=== PATIENT | female | born 1945 | race Caucasian/White ===

== ENCOUNTER → 2017-10-02 | Outpatient (REF) | payer OTHER ==
[2017-10-02 17:51] LABS: ERYTHROCYTE SEDIMENTATION RATE 13 mm/hr (0-30)
[2017-10-02 17:58] LABS: ALBUMIN 3.9 GM/DL (3.2-5.2); ALBUMIN/GLOBULIN RATIO 1.15 (1.00-1.93); ALKALINE PHOSPHATASE 80 U/L (45-117); ALT/SGPT 29 U/L (12-78); ANION GAP 8 MEQ/L (8-16); AST/SGOT 20 U/L (7-37); BILIRUBIN,TOTAL 0.6 MG/DL (0.2-1.0); BLOOD UREA NITROGEN 13 MG/DL (7-18); CALCIUM LEVEL 9.5 MG/DL (8.8-10.2); CARBON DIOXIDE LEVEL 28 MEQ/L (21-32); CHLORIDE LEVEL 105 MEQ/L (98-107); CHOLESTEROL LEVEL 213 MG/DL (<200); CHOLESTEROL RISK RATIO 2.878 (<5); CREATININE FOR GFR 0.81 MG/DL (0.55-1.30); GLOMERULAR FILTRATION RATE > 60.0 (>39); GLUCOSE, FASTING 102 MG/DL (70-100); HDL CHOLESTEROL 74 MG/DL (>40); NON-HDL-C 139 MG/DL; POTASSIUM SERUM 4.2 MEQ/L (3.5-5.1); SODIUM LEVEL 141 MEQ/L (136-145); TOTAL PROTEIN 7.3 GM/DL (6.4-8.2); TRIGLYCERIDES LEVEL 115 MG/DL (<150)
[2017-10-02 18:05] LABS: TOTAL 25(OH) VITAMIN D 38.8 NG/ML (30.0-100.0)
== END ==
LOC: M SFHCCLAY 10:34
DX: E78.00 Pure hypercholesterolemia, unspecified (principal); I10 Essential (primary) hypertension; M35.3 Polymyalgia rheumatica; E55.9 Vitamin D deficiency, unspecified; Z68.41 Body mass index [BMI] 40.0-44.9, adult; Z79.899 Other long term (current) drug therapy
CPT/HCPCS: 80053

== ENCOUNTER → 2018-12-19 | Outpatient (REF) | payer OTHER ==
[2018-12-19 17:02] LABS: ALBUMIN 3.7 GM/DL (3.2-5.2); ALT/SGPT 24 U/L (12-78); BILIRUBIN,TOTAL 0.5 MG/DL (0.2-1.0); BLOOD UREA NITROGEN 15 MG/DL (7-18); CALCIUM LEVEL 9.3 MG/DL (8.8-10.2); CARBON DIOXIDE LEVEL 33 MEQ/L (21-32); CHLORIDE LEVEL 103 MEQ/L (98-107); CHOLESTEROL LEVEL 208 MG/DL (<200); CHOLESTEROL RISK RATIO 3.058 (<5); GLOMERULAR FILTRATION RATE > 60.0 (>39); GLUCOSE, FASTING 98 MG/DL (70-100); HDL CHOLESTEROL 68 MG/DL (>40); LDL CHOLESTEROL 112 MG/DL (<100); NON-HDL-C 140 MG/DL; POTASSIUM SERUM 4.2 MEQ/L (3.5-5.1); SODIUM LEVEL 140 MEQ/L (136-145); TOTAL PROTEIN 6.8 GM/DL (6.4-8.2); TRIGLYCERIDES LEVEL 139 MG/DL (<150)
[2018-12-19 17:10] LABS: TOTAL 25(OH) VITAMIN D 40.2 NG/ML (30.0-100.0)
== END ==
LOC: M SFHCCLAY 10:05
PROVIDERS: ATTEND Family Medicine
DX: I10 Essential (primary) hypertension (principal); E78.00 Pure hypercholesterolemia, unspecified; E55.9 Vitamin D deficiency, unspecified

== ENCOUNTER → 2019-12-23 | Outpatient (REF) | payer OTHER ==
[2019-12-23 17:29] LABS: HEMATOCRIT 31.1 % (36.0-47.0); HEMOGLOBIN 9.8 g/dl (12.0-15.5); MEAN CORPUSCULAR HEMOGLOBIN 28.2 pg (27.0-33.0); MEAN CORPUSCULAR HGB CONC 31.5 g/dl (32.0-36.5); MEAN CORPUSCULAR VOLUME 89.6 fl (80.0-96.0); PLATELET COUNT, AUTOMATED 252 10^3/uL (150-450); RED BLOOD COUNT 3.47 10^6/uL (4.00-5.40); WHITE BLOOD COUNT 2.3 10^3/uL (4.0-10.0)
== END ==
LOC: M LABDRAWC 12:35
PROVIDERS: ATTEND Internal Medicine Hematology & Oncology
DX: C50.812 Malignant neoplasm of overlapping sites of left female breast (principal)

== ENCOUNTER → 2020-10-26 | Outpatient (CLI) | payer OTHER ==
[~2020-10-26] MED LIST: ANAS1TAB2 PO; ATOR40TA75 PO; ECOT81TA5 PO; LISI20TA33 PO; LOPE2CAP PO; POTA20TA6 PO; VITA500045 PO
--- NOTE | 2020-10-27 09:01 | ECHO ---
ECHOCARDIOGRAM DATE OF PROCEDURE: 10/26/2020 Age: 75 Gender: Height: 170 cm Weight: 121 kg REFERRING PROVIDER: Dr. Mariana Chacon. PATIENT LOCATION: Outpatient. REASON FOR THE TESTING: Chemotherapy drug monitoring, malignant neoplasm. 2D MEASUREMENTS: IVS 1.1 cm LV 5.2 cm LVPW 1.0 cm LA 4.4 cm Aorta 3.7 cm DOPPLER MEASUREMENT Peak velocity across the aortic valve 2.7 m/s Peak gradient across the aortic valve 29 mmHg Mean gradient across the aortic valve 70 mmHg Mitral E 0.5 Mitral A 1.0 with a ratio of 0.5 Maximum tricuspid valve velocity 1.9 m/s 2D COMMENTS: 1. Normal left ventricular size, wall thickness, and low normal global left ventricular systolic function. The estimated left ventricular systolic ejection fraction is 50-55%. 2. Mildly enlarged left atrium. Normal right atrium and right ventricle. 3. The atrial septum appeared to be normal without evidence of defect or shunt. 4. Borderline enlarged aortic root at 3.7 cm. 5. A small pericardial effusion was noted. No evidence of cardiac tamponade. 6. Calcified aortic valve with mildly decreased leaflet excursion. Mildly calcified mitral annulus with normal anterior mitral valve leaflet motion. Normal tricuspid valve. The pulmonic valve and proximal pulmonary artery branches were not well visualized. 7. The inferior vena cava was not visualized. DOPPLER: It detects trace tricuspid regurgitation. Calculated pulmonary artery systolic pressure was normal. As mentioned above, there was a tiny color flow jet noted at the level of the atrial septum that may represent a small patent foramen ovale/PFO. IMPRESSION: 1. Low normal global left ventricular systolic function. There were some features of grade 1 left ventricular diastolic dysfunction manifested by abnormal relaxation. 2. Aortic valve sclerosis with mild aortic stenosis but no aortic regurgitation. 3. Mitral annulus calcification without evidence of mitral stenosis or mitral regurgitation. 4. Trace tricuspid regurgitation with a normal calculated pulmonary artery systolic pressure. 5. A small pericardial effusion was noted, no evidence of cardiac tamponade. 6. Borderline enlarged aortic root at 3.7 cm. 7. Possible patent foramen ovale/PFO. Consider a bubble study.
== END ==
LOC: M CARPUL 09:28
PROVIDERS: ATTEND Internal Medicine Medical Oncology
DX: C50.912 Malignant neoplasm of unspecified site of left female breast (principal); Z92.21 Personal history of antineoplastic chemotherapy; Z79.899 Other long term (current) drug therapy

== ENCOUNTER → 2020-11-15 | Outpatient (CLI) | payer OTHER ==
--- NOTE | 2020-11-17 11:39 | ECHO ---
ECHOCARDIOGRAM DATE OF PROCEDURE: 11/15/2020 Age: 75 Gender: Female Height: 67 inches Weight: 265 pounds Body Surface Area: 2.28 m2 PATIENT LOCATION: Outpatient. REFERRING PHYSICIAN: Dr. Mariana Chacon. INDICATION: Potentially cardiotoxic chemotherapy. MEASUREMENTS: 2D Measurements: RV 4.0 cm LV 4.7 cm Septum 1.2 cm Posterior wall 1.2 cm Aortic Root 3.5 cm Ascending aorta 3.8 cm LA 4.6 cm LVEF 65% Doppler Measurements: AV 2.65 m/s LVOT 0.75 m/s LVOT diameter 2.1 cm Mean AV gradient 18 mmHg Dimensionless index 0.25 MV-E 49, A 91, EA ratio 0.5 Early mitral deceleration time 264 msec E prime medial 5.7, A prime medial 9.7, E prime lateral 4.5 Average E/E prime ratio 9.6/PCWP 13.8 mmHg PV 0.8 m/s Pulmonary artery acceleration time 119 msec PASP 30 mmHg IVC 2.0 cm COMMENTS: Normal sinus rhythm without intraventricular conduction disturbance. Technically challenging study in light of the patient's body habitus, but diagnostically useful information was still obtained. M-mode and 2-dimensional echocardiography was performed with pulse, continuous wave, color flow, and tissue Doppler studies. Strain imaging was also performed. Borderline concentric left ventricular hypertrophy with normal wall motion. Moderately dilated left atrium with grade LV diastolic dysfunction but current estimated mean left atrial pressure upper limits of normal. Right ventricular chamber sizes upper limits of normal with normal wall motion and Doppler sign of borderline pulmonary hypertension. Normal IVC size and collapse against an elevated central venous pressure. Normal aortic root diameter with marginally dilated ascending aorta but normal aortic arch and no coarctation of the aorta. Moderately severe aortic valvular sclerosis with definitely reduced cusp separation and Doppler evidence of at least moderate stenosis. No more than trace insufficiency. Moderate mitral annular calcification but normal leaflet thickness and excursion with no posterior systolic buckling. No apparent functional abnormality. The tricuspid valve was visualized and appeared to be normal with no more than trace insufficiency. No apparent intracardiac mass. Small anterior and posterior echo free spaces measuring approximately 4 mm with no evidence of cardiac chamber compression. MTDD
== END ==
LOC: M CARPUL 09:38
PROVIDERS: ATTEND Internal Medicine Medical Oncology
DX: C50.912 Malignant neoplasm of unspecified site of left female breast (principal); I35.0 Nonrheumatic aortic (valve) stenosis

== ENCOUNTER → 2021-10-27 | Outpatient (CLI) | payer MEDICARE, OTHER ==
[~2021-10-27] MED LIST changes: +POTA-151 PO; -POTA20TA6 PO
== END ==
LOC: M CARPUL 14:27
PROVIDERS: ATTEND Internal Medicine Medical Oncology
DX: I42.7 Cardiomyopathy due to drug and external agent (principal)